=== PATIENT | male | born 1955 | race Caucasian/White ===

== ENCOUNTER 2021-10-25 16:23 | Inpatient (IN) | payer MEDICARE ==
--- NOTE | 2021-10-25 17:53 | XR ---
EXAMINATION TYPE: XR chest 2V DATE OF EXAM: 10/25/2021 COMPARISON: NONE HISTORY: Cough TECHNIQUE: Views FINDINGS: Heart is normal. Lungs are clear of infiltrate. No heart failure. There are no hilar masses . Costophrenic angles are clear. There are small linear density right lung base. Bony thorax is intac t. IMPRESSION: Subsegmental atelectasis right lung base. Normal heart.
[2021-10-25] MEDS ORDERED: SODIUM CHLORIDE 0.9% 500 ML 500 ML IV ONE (18:06)
--- NOTE | 2021-10-25 18:06 | ED ---
General Adult HPI - General Chief complaint: Upper Respiratory Infection Stated complaint: made appt online - sob Time Seen by Provider: 10/25/21 17:27 Source: patient, RN notes reviewed, old records reviewed Mode of arrival: ambulatory Limitations: no limitations - History of Present Illness Initial comments: This is a well-appearing 66-year-old male that presents to the emergency room with complaints of shortness of breath for 12 days. States that he does have a yellow productive cough and is having some pain on his right side worse with cough or when laying on his side. Patient states he did take a covid test at home that was negative. Patient denies any fevers, no nausea vomiting or diarrhea. Patient states that he did quit smoking 5 months ago. No other medical history. -: days(s) (12) Severity scale (1-10): 0 Consistency: constant Associated Symptoms: loss of appetite, shortness of breath, other (loss of taste) - Related Data Home Medications Medication Instructions Recorded Confirmed No Known Home Medications 10/25/21 10/25/21 Allergies Allergy/AdvReac Type Severity Reaction Status Date / Time No Known Allergies Allergy Verified 10/25/21 19:35 Review of Systems ROS Statement: Those systems with pertinent positive or pertinent negative responses have been documented in the HPI. ROS Other: All systems not noted in ROS Statement are negative. Past Medical History Past Medical History: No Reported History Past Surgical History: No Surgical Hx Reported Past Psychological History: No Psychological Hx Reported Smoking Status: Former smoker Past Alcohol Use History: None Reported Past Drug Use History: None Reported General Exam Limitations: no limitations General appearance: alert, in no apparent distress Head exam: Present: atraumatic Eye exam: Present: normal appearance. Absent: scleral icterus, conjunctival injection, periorbital swelling, periorbital tenderness Neck exam: Present: full ROM. Absent: tenderness, meningismus Respiratory exam: Present: decreased breath sounds (Diminished right base). Absent: respiratory distress, wheezes, rales, rhonchi, stridor Cardiovascular Exam: Present: tachycardia, normal heart sounds GI/Abdominal exam: Present: soft Neurological exam: Present: alert, oriented X3 Psychiatric exam: Present: normal affect, normal mood Skin exam: Present: warm, dry, normal color. Absent: cyanosis, diaphoretic, petechiae, pallor Course Vital Signs 10/25/21 10/25/21 16:25 20:50 Temperature 98.7 F Pulse Rate 110 H 112 H Respiratory 16 18 Rate Blood Pressure 142/98 O2 Sat by Pulse 95 93 L Oximetry EKG Findings - EKG Results: EKG: sinus rhythm EKG shows: tachycardia (Tachycardia with a ventricular rate of 112, NC interval 0.158, QRS 0.102, QTC 0.393) Medical Decision Making - Medical Decision Making Patient presents with 12 days of shortness of breath with a productive cough. He denies any hemoptysis. X-ray shows subsegmental atelectasis right lung base. There is no evidence of leukocytosis. Due to patient's shortness of breath, tachycardia and infection with coronavirus a CTA was performed to rule out pulmonary embolism. CTA shows pulmonary embolism right upper lobe pulmonary artery. 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 Patient was started on heparin drip. He'll be admitted to the hospital. Case was discussed with Dr. Carrion. - Lab Data Result diagrams: 10/25/21 18:07 10/25/21 18:05 Lab Results 10/25/21 10/25/21 10/25/21 Range/Units 16:28 18:05 18:07 WBC 10.6 (3.8-10.6) k/uL RBC 5.33 (4.30-5.90) m/uL Hgb 17.1 (13.0-17.5) gm/dL Hct 49.0 (39.0-53.0) % MCV 92.0 (80.0-100.0) fL MCH 32.1 (25.0-35.0) pg MCHC 34.9 (31.0-37.0) g/dL RDW 13.5 (11.5-15.5) % Plt Count 273 (150-450) k/uL MPV 8.8 Neutrophils % 73 % Lymphocytes % 17 % Monocytes % 6 % Eosinophils % 0 % Basophils % 1 % Neutrophils # 7.8 H (1.3-7.7) k/uL Lymphocytes # 1.9 (1.0-4.8) k/uL Monocytes # 0.7 (0-1.0) k/uL Eosinophils # 0.0 (0-0.7) k/uL Basophils # 0.1 (0-0.2) k/uL Sodium 138 (137-145) mmol/L Potassium 3.6 (3.5-5.1) mmol/L Chloride 102 (98-107) mmol/L Carbon Dioxide 20 L (22-30) mmol/L Anion Gap 16 mmol/L BUN 9 (9-20) mg/dL Creatinine 0.54 L (0.66-1.25) mg/dL Est GFR (CKD-EPI)AfAm >90 (>60 ml/min/1.73 sqM) Est GFR (CKD-EPI)NonAf >90 (>60 ml/min/1.73 sqM) Glucose 117 H (74-99) mg/dL Calcium 9.0 (8.4-10.2) mg/dL Troponin I (0.000-0.034) ng/mL Coronavirus (PCR) Detected A (Not Detectd) 10/25/21 Range/Units 19:03 WBC (3.8-10.6) k/uL RBC (4.30-5.90) m/uL Hgb (13.0-17.5) gm/dL Hct (39.0-53.0) % MCV (80.0-100.0) fL MCH (25.0-35.0) pg MCHC (31.0-37.0) g/dL RDW (11.5-15.5) % Plt Count (150-450) k/uL MPV Neutrophils % % Lymphocytes % % Monocytes % % Eosinophils % % Basophils % % Neutrophils # (1.3-7.7) k/uL Lymphocytes # (1.0-4.8) k/uL Monocytes # (0-1.0) k/uL Eosinophils # (0-0.7) k/uL Basophils # (0-0.2) k/uL Sodium (137-145) mmol/L Potassium (3.5-5.1) mmol/L Chloride (98-107) mmol/L Carbon Dioxide (22-30) mmol/L Anion Gap mmol/L BUN (9-20) mg/dL Creatinine (0.66-1.25) mg/dL Est GFR (CKD-EPI)AfAm (>60 ml/min/1.73 sqM) Est GFR (CKD-EPI)NonAf (>60 ml/min/1.73 sqM) Glucose (74-99) mg/dL Calcium (8.4-10.2) mg/dL Troponin I <0.012 (0.000-0.034) ng/mL Coronavirus (PCR) (Not Detectd) Critical Care Time Critical Care Time: Yes Total Critical Care Time: 32 (Pulmonary embolism with heparin drip) Disposition Clinical Impression: Pulmonary embolism, COVID-19 Disposition: ADMITTED IP TO THIS HOSP Decision Date: 10/25/21 Decision Time: 19:10
[2021-10-25 18:22] LABS: Basophils # (A) 0.1 k/uL (0-0.2); Basophils % (A) 1 %; Eosinophils % (A) 0 %; HGB 17.1 gm/dL (13.0-17.5); Lymphocytes # (A) 1.9 k/uL (1.0-4.8); Lymphocytes % (A) 17 %; MCH 32.1 pg (25.0-35.0); MCHC 34.9 g/dL (31.0-37.0); Mean Platelet Volume 8.8; Monocytes # (A) 0.7 k/uL (0-1.0); Monocytes % (A) 6 %; Neutrophils # (A) 7.8 k/uL (1.3-7.7); Neutrophils % (A) 73 %; Platelet Count 273 k/uL (150-450); RBC 5.33 m/uL (4.30-5.90); RDW 13.5 % (11.5-15.5); WBC 10.6 k/uL (3.8-10.6)
[2021-10-25 18:27] LABS: African American GFR (CKD) >90 (>60 ml/min/1.73 sqM); Anion Gap 16 mmol/L; Blood Urea Nitrogen 9 mg/dL (9-20); Carbon Dioxide 20 mmol/L (22-30); Chloride 102 mmol/L (98-107); Glucose 117 mg/dL (74-99); Non-African American GFR(CKD) >90 (>60 ml/min/1.73 sqM); Sodium 138 mmol/L (137-145)
[2021-10-25 18:30] LABS: Potassium 3.6 mmol/L (3.5-5.1)
--- NOTE | 2021-10-25 19:03 | CT ---
EXAMINATION TYPE: CT angio chest DATE OF EXAM: 10/25/2021 COMPARISON: None HISTORY: r/o pe CT DLP: 1010.1 mGycm Automated exposure control for dose reduction was used. CONTRAST: Performed with IV Contrast, patient injected with 100ml mL of Isovue 370. There are Three-D postprocessed images. The lungs are clear of consolidation. No evidence of a pulmonary mass. There is mild subsegmental ate lectasis at the lung bases. No pleural effusion. Heart size is normal. No pericardial effusion. There is no mediastinal adenopathy. There are no hilar masses. Thoracic aorta appears intact. The ascending aorta measures 4.1 cm. No dissection. There is filling defects in the right upper lobe pulmonary artery. The lower lobe pulmonary arteries show normal opacification. The thoracic spine is intact. No compression fracture. There is multilevel hypertrophic spurring. IMPRESSION: Pulmonary embolism right upper lobe pulmonary artery. Borderline aneurysm of the ascending aorta. Exam was discussed with emergency room attending staff at 1:00 PM.
[2021-10-25] MEDS ORDERED: HEPARIN SODIUM 1,000 UN/ML (10ML VL) IV PRN (19:09)
[2021-10-25] MEDS ORDERED: HEPARIN SODIUM 1,000 UN/ML (10ML VL) IV ONE (19:09)
[2021-10-25] MEDS ORDERED: NALOXONE 0.4 MG/ML 1 ML VIAL IV PRN (19:28)
[2021-10-25] MEDS ORDERED: ACETAMINOPHEN TAB 325 MG TAB PO PRN (19:28)
[2021-10-25] MEDS: HEPARIN SOD,PORK IN 0.45% NACL 25,000 UNIT in 0.45% NACL 1 250ML.BAG IV SCH (20:45)
[2021-10-25] MEDS: SODIUM CHLORIDE 0.9% 1,000 ML IV SCH (20:46)
[2021-10-26] MEDS: SODIUM CHLORIDE 0.9% 1,000 ML IV SCH ×2 (10:57→23:15)
[2021-10-26] MEDS: HEPARIN SOD,PORK IN 0.45% NACL 25,000 UNIT in 0.45% NACL 1 250ML.BAG IV SCH ×2 (10:58→23:08)
[2021-10-26] MEDS: SYMBICORT 160-4.5 MCG INHALER INHALATION SCH ×2 (11:00→20:29)
[2021-10-26 11:36] LABS: Basophils # (A) 0.02 X 10*3/uL (0.00-0.10); Basophils % (A) 0.2 %; Eosinophils # (A) 0.07 X 10*3/uL (0.04-0.35); Eosinophils % (A) 0.7 %; HCT 41.4 % (39.6-50.0); HGB 14.5 g/dL (13.0-17.0); Immature Grans, Automated 0.7 %; Lymphocytes # (A) 2.08 X 10*3/uL (0.90-5.00); MCH 31.5 pg (27.0-32.0); MCV 89.8 fL (80.0-97.0); Mean Platelet Volume 11.9 fL (9.5-12.2); Monocytes % (A) 11.1 %; NRBC Per 100 WBC 0 /100 WBCS (0.0-0.0); Neutrophils # (A) 6.57 X 10*3/uL (1.80-7.70); Neutrophils % (A) 66.3 %; Platelet Count 223 X 10*3/uL (140-440); RBC 4.61 X 10*6/uL (4.40-5.60); RDW 13.2 % (11.5-14.5); WBC 9.91 X 10*3/uL (4.50-10.00)
[2021-10-26] MEDS: ALBUTEROL HFA INHALER INHALATION SCH ×3 (12:00→20:29)
--- NOTE | 2021-10-26 12:18 | P.CNPUL ---
History of Present Illness Consult date: 10/26/21 Requesting physician: Herb Tovar Reason for consult: dyspnea, pulmonary embolism, abnormal CXR/CT Chief complaint: Shortness of breath, cough, right-sided chest pain History of present illness: This is a pleasant 66-year-old male patient with a history of heavy tobacco dependence however quit about 5 months ago, no other significant medical history. The patient is not on any home medications. Over the past 2 weeks he had developed loss of taste and dry mouth with increasing shortness of breath cough and congestion. He also had some right-sided chest pain. He presented here to the emergency room yesterday for the same. Chest x-ray revealed subsegmental atelectasis in the right lung base. No infiltrates. No heart failure. No hilar masses. CT angiogram did reveal a pulmonary embolism in the right upper lobe pulmonary artery. The borderline aneurysm in the ascending aorta measuring 4.1 cm. No dissection. White count 9.9. Hemoglobin 14.5. Platelets 223. Sodium 138. Potassium 3.6. Bicarb 20. BUN 9. Creatinine 0.54. Glucose 117. Troponin negative 1. Ramos virus by PCR positive. If the patient is not vaccinated. He is seen today in consultation in the emergenc y department. Awake and alert in no acute distress. Maintaining O2 saturations in the 90s on room air. Currently afebrile. Hemodynamically stable. Less short of breath, less pain on inspiration. He is initiated on a heparin drip. Review of Systems REVIEW OF SYSTEMS: CONSTITUTIONAL: Denies any recent significant weight loss or weight gain. EYES: Denies change in vision. EARS, NOSE, MOUTH, THROAT: Positive for loss of taste, dry mouth CARDIOVASCULAR: Positive for right-sided chest wall pain, no palpitations or syncopal episodes. RESPIRATORY: Positive for shortness of breath, cough, congestion no hemoptysis. GASTROINTESTINAL: Denies change in appetite, denies abdominal pain GENITOURINARY: Denies hematuria, denies infections. MUSKULOSKELETAL: Denies pain, denies swelling. INTEGUMENTARY: Denies rash, denies eczema. NEUROLOGICAL: Denies recent memory loss, no recent seizure activity. PSYCHIATRIC: Denies anxiety, denies depression. HEMATOLOGIC/LYMPHATIC: Denies anemia, denies enlarged lymph nodes. Past Medical History Past Medical History: No Reported History Past Surgical History: No Surgical Hx Reported Past Psychological History: No Psychological Hx Reported Smoking Status: Former smoker Past Alcohol Use History: None Reported Past Drug Use History: None Reported Medications and Allergies Home Medications Medication Instructions Recorded Confirmed Type No Known Home Medications 10/25/21 10/25/21 History Allergies Allergy/AdvReac Type Severity Reaction Status Date / Time No Known Allergies Allergy Verified 10/25/21 19:35 Physical Exam Vitals: Vital Signs Temp Pulse Resp BP Pulse Ox 10/26/21 10:54 98.9 F 102 H 20 127/79 93 L 10/26/21 04:59 100 F H 86 18 132/75 94 L 10/25/21 20:50 112 H 18 142/98 93 L 10/25/21 16:25 98.7 F 110 H 16 95 Intake and Output 10/25/21 10/26/21 10/26/21 22:59 06:59 14:59 Intake Total 188.217 61.783 Balance 188.217 61.783 Intake: Intake, IV Titration 188.217 61.783 Amount Heparin Sod,Pork in 0.45% 188.217 61.783 NaCl 25,000 unit In 0.45 % NaCl 1 250ml.bag @ 18 UNITS/KG/HR 24.494 mls/hr IV .[id number] [facility] Rx#: [id number] Other: Weight 136.078 kg GENERAL EXAM: Alert, pleasant 66-year-old male patient,on room air, fairly comfortable in no apparent distress. HEAD: Normocephalic. EYES: Normal reaction of pupils, equal size. NOSE: Clear with pink turbinates. THROAT: No erythema or exudates. NECK: No masses, no JVD. CHEST: No chest wall deformity. LUNGS: Equal air entry with bilateral end expiratory wheeze, diminished. CVS: S1 and S2 normal with no audible murmur, regular rhythm. ABDOMEN: No hepatosplenomegaly, normal bowel sounds, no guarding or rigidity. SPINE: No scoliosis or deformity SKIN: No rashes CENTRAL NERVOUS SYSTEM: No focal deficits, tone is normal in all 4 extremities. EXTREMITIES: Changes of chronic venous stasis.There is no peripheral edema. No clubbing, no cyanosis. Peripheral pulses are intact. Results - Laboratory Findings CBC and BMP: 10/26/21 06:14 10/25/21 18:05 Abnormal lab findings: Abnormal Labs 10/25/21 10/25/21 10/25/21 16:28 18:05 18:07 Immature Gran # Neutrophils # 7.8 H Monocytes # APTT Carbon Dioxide 20 L Creatinine 0.54 L Glucose 117 H Coronavirus (PCR) Detected A 10/26/21 10/26/21 04:02 06:14 Immature Gran # 0.07 H Neutrophils # Monocytes # 1.10 H APTT 38.1 H Carbon Dioxide Creatinine Glucose Coronavirus (PCR) - Diagnostic Findings Chest x-ray: image reviewed CT scan - chest: image reviewed Assessment and Plan Assessment: Pleuritic right-sided chest pain secondary to pulmonary emboli Pulmonary emboli suspect secondary to COVID-19 infection, no evidence of COVID- 19 pneumonia COVID-19 infection with symptoms starting 2 weeks ago. Not vaccinated. History of chronic tobacco dependence of 50 years however quit 5 months ago Suspect chronic obstructive pulmonary disease Plan: The patient was seen and evaluated CAT scan, chest x-ray and labs reviewed Continue heparin drip for now Plan to transition tomorrow to oral anticoagulants Add Symbicort, albuterol, IV Solu-Medrol He would benefit from outpatient workup including full pulmonary function testing We will continue to follow and make further recommendations based on his clinical status I have personally seen and examined the patient, performed the documentation and the assessment and plan as written. Number of minutes spent on the visit: 20.
[2021-10-26] MEDS: methylPREDNISolone SOD SUCCI 125 MG/2 ML VIAL IV SCH ×3 (12:20→23:14)
--- NOTE | 2021-10-27 02:04 | P.HPIM ---
History of Present Illness H&P Date: 10/26/21 Chief Complaint: Generalized weakness, cough congestion Patient is a 66-year-old male with a known history of smoking presents to ER with complaints of worsening shortness of breath cough and congestion and decreased appetite and loss of taste sensation. Patient states that he was having some right lower chest aching sensation when lifting back in the grocery store. Denied any pleuritic pain. No fever no chills. Does have cough without any sputum production. Presents to ER due to worsening symptoms. Chest x-ray showed subsegmental atelectasis right lung base. Normal heart. Laboratory test showed WBC 10.6 hemoglobin 17.7 and platelets 273 Sodium 138 potassium 3.0 chloride 102 bicarb is 20, BUN 9 and creatinine 0.54 and coronavirus PCR detected. CT angio of the chest showed pulmonary embolism right upper lobe pulmonary artery. Borderline aneurysm of the ascending aorta. EKG showed sinus tachycardia and low QRS Review of Systems Constitutional: Patient denies any fever or chills . Patient does have generalized weakness. Malaise and fatigue. Decreased appetite. Abdomen: Patient denied any nausea or vomiting or abd. pain Cardiovascular: Patient denies any chest pain. Patient does have shortness of breath and cough congestion. Respiratory: patient does have cough congestion no sputum production. Does have shortness of breath Neurologic: Patient denied any numbness or tingling headache. Musculoskeletal: Patient denies any complaints of joint swelling or deformity. Skin: Negative Psychiatric: Negative Endocrine: No heat or cold intolerance. No recent weight gain. Genitourinary: No dysuria or hematuria. All other 14 point ROS negative except the above Past Medical History Past Medical History: No Reported History Past Surgical History: No Surgical Hx Reported Past Psychological History: No Psychological Hx Reported Smoking Status: Former smoker Past Alcohol Use History: None Reported Past Drug Use History: None Reported Medications and Allergies Home Medications Medication Instructions Recorded Confirmed Type No Known Home Medications 10/25/21 10/25/21 History Allergies Allergy/AdvReac Type Severity Reaction Status Date / Time No Known Allergies Allergy Verified 10/25/21 19:35 Physical Exam Vitals: Vital Signs Temp Pulse Resp BP Pulse Ox 10/26/21 12:24 102 H 18 130/78 94 L 10/26/21 10:54 98.9 F 102 H 20 127/79 93 L 10/26/21 04:59 100 F H 86 18 132/75 94 L 10/25/21 20:50 112 H 18 142/98 93 L 10/25/21 16:25 98.7 F 110 H 16 95 Intake and Output 10/25/21 10/26/21 10/26/21 22:59 06:59 14:59 Intake Total 188.217 61.783 Balance 188.217 61.783 Intake: Intake, IV Titration 188.217 61.783 Amount Heparin Sod,Pork in 0.45% 188.217 61.783 NaCl 25,000 unit In 0.45 % NaCl 1 250ml.bag @ 18 UNITS/KG/HR 24.494 mls/hr IV .[id number] [facility] Rx#: [id number] Other: Weight 136.078 kg PHYSICAL EXAMINATION: Patient is lying in the bed comfortably, no acute distress, awake alert and oriented.. HEENT: Normocephalic. Neck is supple. Pupils reactive. Nostrils clear. Oral cavity is moist. Neck reveals no JVD, carotid bruits, or thyromegaly. CHEST EXAMINATION: Trachea is central. Symmetrical expansion. Bilateral diffuse wheezing.. CARDIAC: Normal S1, S2 with no gallops. No murmurs ABDOMEN: Soft. Bowel sounds present. Nontender. No organomegaly. No abdominal bruits. Extremities: reveal no edema. No clubbing or cyanosis Neurologically awake, alert, oriented x3 with well-coordinated movements. No focal deficits noted Skin: No rash or skin lesions. Psychiatric: Coperative. Nonsuicidal, Musculoskeletal: No joint swelling or deformity. Normal range of motion. Results CBC & Chem 7: 10/26/21 06:14 10/25/21 18:05 Labs: Abnormal Lab Results - Last 24 Hours (Table) 10/25/21 10/25/21 10/25/21 Range/Units 16:28 18:05 18:07 Immature Gran # (0.00-0.04) X 10*3/uL Neutrophils # 7.8 H (1.3-7.7) k/uL Monocytes # (0.20-1.00) X 10*3/uL APTT (22.0-30.0) sec Carbon Dioxide 20 L (22-30) mmol/L Creatinine 0.54 L (0.66-1.25) mg/dL Glucose 117 H (74-99) mg/dL Coronavirus (PCR) Detected A (Not Detectd) 10/26/21 10/26/21 10/26/21 Range/Units 04:02 06:14 11:43 Immature Gran # 0.07 H (0.00-0.04) X 10*3/uL Neutrophils # (1.3-7.7) k/uL Monocytes # 1.10 H (0.20-1.00) X 10*3/uL APTT 38.1 H 57.4 H (22.0-30.0) sec Carbon Dioxide (22-30) mmol/L Creatinine (0.66-1.25) mg/dL Glucose (74-99) mg/dL Coronavirus (PCR) (Not Detectd) Thrombosis Risk Factor Assmnt - DVT/VTE Prophylaxis DVT/VTE Prophylaxis: Pharmacologic Prophylaxis ordered Assessment and Plan Assessment: Acute right upper lobe pulmonary artery embolism likely secondary to COVID-19 infection Acute COVID-19 infection. Patient is not hypoxic. Pleuritic chest pain right-sided secondary to PE History of smoking quit 5 months ago COPD GI prophylaxis Plan: Patient will be current heparin drip. Oxygen supplementation as needed. Patient will continue on duo nebs and IV Solu-Medrol was added. Pulmonary is on board. Continue to follow closely. Time with Patient: Greater than 30
[2021-10-27] MEDS: methylPREDNISolone SOD SUCCI 125 MG/2 ML VIAL IV SCH ×2 (05:18→13:02)
[2021-10-27] MEDS: HEPARIN SOD,PORK IN 0.45% NACL 25,000 UNIT in 0.45% NACL 1 250ML.BAG IV SCH ×2 (08:11→12:20)
[2021-10-27] MEDS: SYMBICORT 160-4.5 MCG INHALER INHALATION SCH (08:37)
[2021-10-27] MEDS: ALBUTEROL HFA INHALER INHALATION SCH ×3 (08:37→15:45)
[2021-10-27 10:31] LABS: Basophils # (A) 0.02 X 10*3/uL (0.00-0.10); Basophils % (A) 0.2 %; Eosinophils # (A) 0.01 X 10*3/uL (0.04-0.35); Eosinophils % (A) 0.1 %; HCT 41.7 % (39.6-50.0); HGB 14.6 g/dL (13.0-17.0); Immature Grans, Automated 0.7 %; Lymphocytes # (A) 1.84 X 10*3/uL (0.90-5.00); Lymphocytes % (A) 17.8 %; MCH 31.7 pg (27.0-32.0); MCV 90.5 fL (80.0-97.0); Mean Platelet Volume 12.5 fL (9.5-12.2); Monocytes # (A) 0.33 X 10*3/uL (0.20-1.00); Monocytes % (A) 3.2 %; NRBC Per 100 WBC 0 /100 WBCS (0.0-0.0); Neutrophils # (A) 8.05 X 10*3/uL (1.80-7.70); Platelet Count 248 X 10*3/uL (140-440); RBC 4.61 X 10*6/uL (4.40-5.60); RDW 12.9 % (11.5-14.5); WBC 10.32 X 10*3/uL (4.50-10.00)
[2021-10-27 10:47] LABS: African American GFR (CKD) 130.9 (60.0-200.0); Anion Gap 11.4 mmol/L (10.00-18.00); BUN/Creat Ratio 15.2 Ratio (12.00-20.00); Blood Urea Nitrogen 7.6 mg/dL (9.0-27.0); Calcium 8.4 mg/dL (8.7-10.3); Carbon Dioxide 23.6 mmol/L (20.0-27.5); Non-African American GFR(CKD) 112.9 (60.0-200.0); Potassium 3.6 mmol/L (3.5-5.5)
--- NOTE | 2021-10-27 11:58 | CA ---
Transthoracic Echo Report Name: Dhara Domínguez Age: 66 Gender: M : 1955 Exam Date: 10/27/2021 09:41 Exam Location: [facility] Ht (in): Wt (lb): Ordering Physician: Romulo Fung Attending/Referring Phys: Drilling Rig Operator Samia Gibson RDCS Procedure CPT: Indications: PE Cardiac Hx: Technical Quality: Technically difficult study Contrast 1: Lumason Total Dose (mL): 4 Contrast 2: Total Dose (mL): MEASUREMENTS (Male / Female) Normal Values 2D ECHO LV Diastolic Diameter PLAX 5.0 cm 4.2 - 5.9 / 3.9 - 5.3 cm LV Systolic Diameter PLAX 3.5 cm IVS Diastolic Thickness 1.5 cm 0.6 - 1.0 / 0.6 - 0.9 cm LVPW Diastolic Thickness 1.3 cm 0.6 - 1.0 / 0.6 - 0.9 cm LV Relative Wall Thickness 0.6 RV Internal Dim ED PLAX 3.0 cm M-MODE Aortic Root Diameter MM 3.4 cm LA Systolic Diameter MM 3.5 cm LA Ao Ratio MM 1.0 AV Cusp Separation MM 2.4 cm DOPPLER AV Peak Velocity 120.9 cm/s AV Peak Gradient 5.8 mmHg MV Area PHT 6.1 cm??? Mitral E Point Velocity 74.0 cm/s Mitral A Point Velocity 83.7 cm/s Mitral E to A Ratio 0.9 MV Deceleration Time 125.1 ms FINDINGS Left Ventricle Mildly increased left ventricular wall thickness. Normal left ventricular systolic function with no obvious regional wall motion abnormalities. Left ventricular ejection fraction is estimated at 55-60 %. Right Ventricle Normal right ventricular size and function. Right ventricular systolic pressure within normal limits. Right Atrium Normal right atrial size. Left Atrium Normal left atrial size. Mitral Valve Structurally normal mitral valve. No mitral stenosis. Mild mitral regurgitation. Aortic Valve No aortic valve stenosis or regurgitation. Tricuspid Valve Structurally normal tricuspid valve. Mild tricuspid stenosis. Pulmonic Valve Pulmonic valve not well visualized. Pericardium No pericardial effusion. Aorta Normal size aortic root and proximal ascending aorta. CONCLUSIONS Preserved LV systolic function Mild LVH Previewed by: Dr. Agapito Mcallister MD (Electronically Signed) Final Date: 27 October 2021 11:57
[2021-10-27] MEDS: SODIUM CHLORIDE 0.9% 1,000 ML IV SCH (12:19)
[2021-10-27 12:34] VITALS: PULSE 91; RESP 17
[2021-10-27] MEDS ORDERED: APIXABAN 5 MG TAB PO SCH (13:00)
--- NOTE | 2021-10-27 14:48 | P.PN ---
Subjective Progress Note Date: 10/27/21 This is a pleasant 66-year-old male patient with a history of heavy tobacco dependence however quit about 5 months ago, no other significant medical history. The patient is not on any home medications. Over the past 2 weeks he had developed loss of taste and dry mouth with increasing shortness of breath cough and congestion. He also had some right-sided chest pain. He presented here to the emergency room yesterday for the same. Chest x-ray revealed subsegmental atelectasis in the right lung base. No infiltrates. No heart failure. No hilar masses. CT angiogram did reveal a pulmonary embolism in the right upper lobe pulmonary artery. The borderline aneurysm in the ascending aorta measuring 4.1 cm. No dissection. White count 9.9. Hemoglobin 14.5. Platelets 223. Sodium 138. Potassium 3.6. Bicarb 20. BUN 9. Creatinine 0.54. Glucose 117. Troponin negative 1. Ramos virus by PCR positive. If the patient is not vaccinated. He is seen today in consultation in the emergency department. Awake and alert in no acute distress. Maintaining O2 saturations in the 90s on room air. Currently afebrile. Hemodynamically stable. Less short of breath, less pain on inspiration. He is initiated on a heparin drip. The patient is seen today 10/27/2021 in follow-up on the regular medical floor. He is currently sitting up in a chair at the bedside. Awake and alert in no acute distress. Maintaining good O2 saturations in the 90s on room air. white count 10.3. Humulin 14.6. Sodium 139. Potassium 3.6. BUN is 7 creatinine 0.5. Glucose 162.he is continued on heparin drip. Symbicort, IV Solu Medrol, albuterol. Objective - Vital Signs Vital signs: Vital Signs Temp 97.9 F 10/27/21 10:00 Pulse 91 10/27/21 10:00 Resp 17 10/27/21 10:00 BP 149/74 10/27/21 10:00 Pulse Ox 94 L 10/27/21 10:00 FiO2 Intake & Output 10/26/21 10/27/21 10/27/21 18:59 06:59 18:59 Intake Total 61.783 400 250 Balance 61.783 400 250 Intake: Intake, IV Titration 61.783 250 250 Amount Heparin Sod,Pork in 0.45% 61.783 250 250 NaCl 25,000 unit In 0.45 % NaCl 1 250ml.bag @ 18 UNITS/KG/HR 24.494 mls/hr IV .[id number] [facility] Rx#: [id number] Oral 150 Other: Voiding Method Toilet Toilet # Voids 0 1 # Bowel Movements 0 - Exam GENERAL EXAM: Alert, active, pleasant 66-year-old male patient, on room air,comfortable in no apparent distress. HEAD: Normocephalic. EYES: Normal reaction of pupils, equal size. NOSE: Clear with pink turbinates. THROAT: No erythema or exudates. NECK: No masses, no JVD. CHEST: No chest wall deformity. LUNGS: Equal air entry with no crackles, wheeze, rhonchi or dullness. CVS: S1 and S2 normal with no audible murmur, regular rhythm. ABDOMEN: No hepatosplenomegaly, normal bowel sounds, no guarding or rigidity. SPINE: No scoliosis or deformity SKIN: No rashes CENTRAL NERVOUS SYSTEM: No focal deficits, tone is normal in all 4 extremities. EXTREMITIES: There is no peripheral edema. No clubbing, no cyanosis. Peripheral pulses are intact. - Labs CBC & Chem 7: 10/27/21 05:53 10/27/21 05:53 Labs: Abnormal Lab Results - Last 24 Hours (Table) 10/27/21 10/27/21 10/27/21 Range/Units 05:53 05:53 05:53 WBC 10.32 H (4.50-10.00) X 10*3/uL MPV 12.5 H (9.5-12.2) fL Immature Gran # 0.07 H (0.00-0.04) X 10*3/uL Neutrophils # 8.05 H (1.80-7.70) X 10*3/uL Eosinophils # 0.01 L (0.04-0.35) X 10*3/uL APTT 104.5 H* (22.0-30.0) sec BUN 7.6 L (9.0-27.0) mg/dL Creatinine 0.5 L (0.6-1.5) mg/dL Glucose 162 H (70-110) mg/dL Calcium 8.4 L (8.7-10.3) mg/dL Assessment and Plan Assessment: Pleuritic right-sided chest pain secondary to pulmonary emboli Pulmonary emboli suspect secondary to COVID-19 infection, no evidence of COVID- 19 pneumonia COVID-19 infection with symptoms starting 2 weeks ago. Not vaccinated. History of chronic tobacco dependence of 50 years however quit 5 months ago Suspect chronic obstructive pulmonary disease Plan: The patient was seen and evaluated Stable and on room air Initiate Eliquis Cleared for discharge I have personally seen and examined the patient, performed the documentation and the assessment and plan as written. Number of minutes spent on the visit: 10.
[2021-10-27 14:53] VITALS: BP 137/86; TEMP 98.1
--- NOTE | 2021-10-29 08:28 | P.DS ---
Providers Date of admission: 10/25/21 19:35 Attending physician: Duc Mena Consults: 10/25/21 19:28 Consult Physician Routine Consulting Provider: Niya Gómez Consult Reason/Comments: Pulmonary embolism, coronavirus Do you want consulting provider notified?: Yes, Notify in am Primary care physician: Duc Mena Hospital Course: This discharge summary 66-year-old white male essentially admitted for pulmonary embolus most likely related to Covid infection. The patient was started on appropriate anticoagulation. Pulmonology to the patient he was on room air without respiratory difficulty and will be discharged in stable condition to follow-up with me in about 5 days Patient Condition at Discharge: Fair Plan - Discharge Summary Discharge Rx Participant: Yes New Discharge Prescriptions: New Apixaban [Eliquis Starter Pack (for VTE)] 5 - 10 mg PO DIRECTED 30 Days #1 each Discharge Medication List Apixaban [Eliquis Starter Pack (for VTE)] 5 - 10 mg PO DIRECTED 30 Days #1 each 10/27/21 [Rx] Follow up Appointment(s)/Referral(s): Duc Mena MD [Primary Care Provider] - 1 Week (office will call with appointment date and time ) Patient Instructions/Handouts: Pulmonary Embolism (DC), COVID-19 (Coronavirus Disease 2019) (DC) Activity/Diet/Wound Care/Special Instructions: Eliquis copay is $30/month Discharge Disposition: HOME SELF-CARE
== END 2021-10-27 16:01 | disposition home or self-care (01) | DRG 175 ==
LOC: EC 16:23 → 4SSUR 19:35
PROVIDERS: ADMIT Family Medicine; ATTEND Family Medicine
DX: I26.99 Other pulmonary embolism without acute cor pulmonale (principal); U07.1 COVID-19; J98.11 Atelectasis; R00.0 Tachycardia, unspecified; I34.0 Nonrheumatic mitral (valve) insufficiency; J44.9 Chronic obstructive pulmonary disease, unspecified; I71.2 Thoracic aortic aneurysm, without rupture; Z86.711 Personal history of pulmonary embolism; Z87.891 Personal history of nicotine dependence; Z28.310 Unvaccinated for COVID-19; Z20.822 Contact with and (suspected) exposure to COVID-19
CPT/HCPCS: 36415; 71046; 71275; 80048; 84484; 85025; 85730; 87635; 93005; 93306; 94640; 96365; 96366; 96375; 99291

== ENCOUNTER → 2022-02-03 | Outpatient (CLI) | payer MEDICARE ==
[2022-02-03 17:24] LABS: African American GFR (CKD) >90 (>60 ml/min/1.73 sqM); Blood Urea Nitrogen 16 mg/dL (9-20); Non-African American GFR(CKD) >90 (>60 ml/min/1.73 sqM)
--- NOTE | 2022-02-03 18:47 | CT ---
EXAMINATION TYPE: CT chest wo/w con DATE OF EXAM: 02/03/2022 COMPARISON: Prior CTA chest October 26, 2019 HISTORY: Hx of PE CT DLP: 1895.3 mGycm. Automated Exposure Control for Dose Reduction was Utilized. TECHNIQUE: CT scan of the thorax is performed following without and with IV Contrast, patient inject ed with 100cc mL of Isovue 300. FINDINGS: LUNGS: There is new 1.7 x 1.1 cm left lower lobe nodule or nodular consolidation axial image 41 serie s 205. Difficult to assess enhancement due to small size Adjacent groundglass opacities and smaller n odularity identified medial to this. Mild bibasilar linear scarring and/or atelectasis. Mild focal li near scarring and/or atelectasis in the right middle lobe coronal image 50. There is no pleural eff usion or pneumothorax seen. The tracheobronchial tree is patent. MEDIASTINUM: There are no greater than 1 cm hilar or mediastinal lymph nodes. No cardiomegaly or pe ricardial effusion is seen. Poor opacification of the pulmonary arteries on this exam. Cannot assess for pulmonary emboli as well as on prior study. OTHER: Visualized liver remains heterogeneously hypodense suggesting diffuse fatty infiltration. Mode [id number] multilevel anterior and lateral spurring in the thoracic spine is seen. Slight scoliot ic curvature. IMPRESSION: New 1.7 x 1.1 cm superior left lower lobe nodule or possibly nodular consolidation as the re are smaller adjacent glass opacities and areas of nodularity near this level noted. Neoplasm canno t be excluded. PET/CT follow-up advised.
== END | disposition home or self-care (01) ==
LOC: RADCTMAIN 16:22
PROVIDERS: ATTEND Family Medicine
DX: R91.1 Solitary pulmonary nodule (principal); Z86.711 Personal history of pulmonary embolism
CPT/HCPCS: 82565; 84520; 71270; 36415; Q9967

== ENCOUNTER → 2022-02-20 | Outpatient (CLI) | payer MEDICARE ==
--- NOTE | 2022-02-22 13:22 | PE ---
EXAMINATION TYPE: PET CT fusion skull to thigh DATE OF EXAM: 02/20/2022 CLINICAL INDICATION:Male, 66 years old with history of J98.4 Other disorders of lung; TECHNIQUE: Following the intravenous administration of 10.54 mCi of F-18 FDG, whole body images are performed from the skull base to the midthigh. Images are reviewed on the computer in the coronal, axial, and sagittal planes. Reconstructed rotating images are created on independent workstation and reviewed on the computer. A non-contrast CT is performed in conjunction with the PET scan. Glucose level 95 mg/dL COMPARISON: CT 12/04/2021, PET/CT None, FINDINGS: Mediastinal SUV mean is 1.4. Hepatic parenchyma SUV mean is 2.4. SKULL BASE AND NECK: No suspicious radiotracer activity. CHEST, MEDIASTINUM, AND HILAR REGION: No suspicious radiotracer activity. Redemonstration of left low er lobe nodule measuring up to 1.3 x 0.9 cm, previously 1.7 x 1.1 cm. There is some motion however th at limits direct comparison measurements. Max SUV 1.4 ABDOMEN AND PELVIS: No suspicious radiotracer activity. OSSEOUS STRUCTURES: No suspicious radiotracer activity. OTHER CT: Atherosclerosis of the arterial vasculature including the coronary arteries. Scattered clon ic diverticula. Mild multilevel disc degeneration changes to the spine. Small hiatal hernia. IMPRESSION: Left lower lung nodule which may be smaller on today's exam. There is some motion artifact which limi ts evaluation and measuring. No elevated FDG activity. Short-term follow-up with CT chest in 3 months is recommended.
== END | disposition home or self-care (01) ==
LOC: RADPETMAIN 13:19
PROVIDERS: ATTEND Family Medicine
DX: J98.4 Other disorders of lung (principal); R91.1 Solitary pulmonary nodule
CPT/HCPCS: 78815; A9552

== ENCOUNTER → 2022-05-13 | Outpatient (CLI) | payer MEDICARE ==
[2022-05-13 19:19] LABS: African American GFR (CKD) >90 (>60 ml/min/1.73 sqM); Blood Urea Nitrogen 16 mg/dL (9-20); Non-African American GFR(CKD) >90 (>60 ml/min/1.73 sqM)
--- NOTE | 2022-05-15 08:57 | CT ---
EXAMINATION TYPE: CT chest w con CT DLP: 1063.2 mGycm, Automated exposure control for dose reduction was used. DATE OF EXAM: 05/13/2022 7:46 PM COMPARISON: Pet/CT 02/22/2022 CLINICAL INDICATION:Male, 66 years old with history of R91.1; LUNG NODULE TECHNIQUE: Multiple axial images were obtained through the chest. Sagittal and coronal reformats were created for review. Contrast used:100 CC mL of Isovue 300 with IV Contrast Oral contrast used: none. FINDINGS: LUNGS/ PLEURA: Resolution of left lower lobe pulmonary nodule. Mild paraseptal emphysema changes are seen throughout the lungs. AIRWAY: Patent and unremarkable. HEART: Size within normal limits. Moderate atherosclerosis of the arterial vasculature. MEDIASTINUM: No gross evidence of adenopathy. VASCULATURE: No aortic aneurysm. MUSCULOSKELETAL: Mild disc degeneration changes are present throughout the thoracolumbar spine. Bridg ing anterior longitudinal ligament osteophytes/syndesmophytes throughout the spine most pronounced in the lower thoracic spine. SOFT TISSUES/LYMPH NODES: Unremarkable. LOWER NECK: No significant findings. UPPER ABDOMEN: No significant findings. IMPRESSION: 1. Resolution of left lower lung nodule. Suggesting prior infectious/inflammatory process. No suspic ious nodules. 2. Findings compatible with diffuse hepatic skeletal hyperostosis.
== END | disposition home or self-care (01) ==
LOC: RADCTMAIN 17:32
PROVIDERS: ATTEND Family Medicine
DX: R91.1 Solitary pulmonary nodule (principal)
CPT/HCPCS: 82565; 84520; 71260; 36415; Q9967